=== PATIENT | female | born 1990 | race Caucasian/White ===

== ENCOUNTER 2016-12-27 16:51 | Emergency (ER) | payer BC, OTHER ==
[~2016-12-27] VITALS: Ht 170.2 cm; Wt 136.1 kg
[~2016-12-27 16:51] MED LIST: AMOXICILLIN875 MG PO; APAP/CODEINE ELI5 M1 OR; APAP500; BACTRIM DS TAB1 EACH PO; CIPROFLOXACIN500 M1 PO; CLOTRIMAZOLE-BE15 GM TP; DIFLUCAN150 MG PO; DOXYCYCLINE 10100 MG PO; IBUPROFEN 600600 M1 PO; IMODIUM A-D1 MG/5 ML PO; NOHOMEMEDICATIONS; NORCO 5-325 TA1 EACH PO; ORTHO-CYCLEN1 EACH PO; PREDNISONE50 MG PO; PREVACID15 MG PO; SPRINTEC1 EACH PO; TOBREX5 ML OP; TOBREX5 ML OPHTHALMIC; ULTRAM 50MG TAB50 MG PO; ZOFRAN ODT4 MG PO; ZPAK PO
[2016-12-27 17:36] LABS: URINE BILIRUBIN NEGATIVE (Negative); URINE BLOOD 2+ (Negative); URINE COLOR YELLOW; URINE GLUCOSE-RANDOM* NEGATIVE (Negative); URINE KETONES NEGATIVE (Negative); URINE NITRITE NEGATIVE (Negative); URINE PROTEIN (DIPSTICK) NEGATIVE (Negative); URINE SPECIFIC GRAVITY >= 1.030 (1.003-1.035); URINE UROBILINOGEN 0.2 E.U./dl (0.2-1.0)
[2016-12-27 17:52] LABS: CASTS None Seen /LPF (None Seen); CRYSTALS None Seen /LPF (None Seen); SQUAMOUS >10 Many /LPF (0-3)
[2016-12-27 17:53] LABS: BACTERIA 1-9 Few /HPF (None Seen); URINE RBC 3-10 Few /HPF (0-2)
[2016-12-27] MEDS ORDERED: TORADOL 10 MG T10 MG PO (18:13)
[2016-12-27] MEDS ORDERED: FLOMAX0.4 MG PO (18:13)
[2016-12-27] MEDS ORDERED: HYDROCODONE-AP1 EAC6 PO (18:13)
[2016-12-27 18:23] LABS: ABSOLUTE NEUTROPHILS 6.6 thou/uL (1.4-8.2); BASOPHILS 0.8 % (0.0-2.0); EOSINOPHILS 1.9 % (0.0-3.0); HEMATOCRIT 38.5 % (37.0-47.0); LYMPHOCYTES 17.8 % (24.0-44.0); MCH 27.9 pg (26.0-34.0); MCHC 33.8 g/dL (28.0-37.0); MCV 82.5 fL (80.0-100.0); MONOCYTES 9.6 % (1.0-8.0); PLATELET COUNT 227 thou/uL (150-400); POLYS 69.9 % (36.0-66.0); RBC 4.66 mil/uL (4.20-5.00); RDW 14.4 % (10.5-14.5); WBC 9.5 thou/uL (4.0-11.0)
[2016-12-27 18:24] LABS: MANUAL DIFF NO
[2016-12-27 18:27] LABS: CALCIUM 9.5 mg/dL (8.5-10.1); CREATININE 1.2 mg/dL (0.6-1.0); POTASSIUM 3.9 mmol/L (3.5-5.1)
[2016-12-27 19:09] VITALS: BP 150/94
[2016-12-30] MEDS ORDERED: SENNA-DOCUSATE1 EACH PO (11:31)
[2016-12-30] MEDS ORDERED: ZOFRAN ODT4 MG PO (11:31)
== END 2016-12-27 19:00 | disposition home or self-care (01) ==
LOC: ER 16:51
PROVIDERS: Nurse Practitioner Family
DX: N20.0 Calculus of kidney (principal); N39.0 Urinary tract infection, site not specified; F10.99 Alcohol use, unspecified with unspecified alcohol-induced disorder; Z88.1 Allergy status to other antibiotic agents